=== PATIENT | female | born 1985 | race Caucasian/White ===

== ENCOUNTER 2022-01-24 21:00 | Inpatient (IN) | payer MEDICAID ==
[~2022-01-24] VITALS: Ht 160 cm; Wt 71.2 kg
[2022-01-24] MEDS ORDERED: RISP0.5T74 PO (22:17)
[2022-01-24] MEDS ORDERED: acetaminophen 325mg tablet PO PRN ×2 (22:20)
[2022-01-24] MEDS ORDERED: loperamide 2mg capsule PO PRN (22:20)
[2022-01-24] MEDS ORDERED: magnesium hydroxide 30ml (MOM) UD suspension PO PRN (22:20)
[2022-01-24] MEDS ORDERED: mag hydrox/Alum hydrox/simeth 30ml oral suspension PO PRN (22:20)
[2022-01-24 22:57] VITALS: BP 99/58
[2022-01-24] MEDS ORDERED: NICOTINE POLACRILEX 2 MG LOZENGE BC PRN (23:05)
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
[2022-01-25 07:00] VITALS: BP 119/70
[2022-01-25] MEDS ORDERED: nicotine 14mg patch - 24hr TD SCH (08:00)
[2022-01-25 08:07] LABS: HEMOGLOBIN A1C 5.7 % (4.5-6.2)
[2022-01-25 08:21] LABS: CHOL/HDL RATIO 2.1 (0.00-4.99); CHOLESTEROL 138 MG/DL (0-200); HDL CHOLESTEROL 65 MG/DL (35-60); LDL CHOLESTEROL 64 MG/DL (50-100); TRIGLYCERIDES 50 MG/DL (20-135)
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
[2022-01-25] MEDS: risperiDONE 0.5mg tablet PO SCH (20:32)
[2022-01-25] MEDS ORDERED: risperiDONE 0.5mg tablet PO SCH (21:00)
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
[2022-01-26 08:07] VITALS: BP 103/54
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
[2022-01-26 19:54] VITALS: BP 110/56
[2022-01-26] MEDS: risperiDONE 0.5mg tablet PO SCH (20:40)
[2022-01-26] MEDS ORDERED: hydrOXYzine 25 MG tablet PO ONE (21:10)
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
[2022-01-27 08:00] VITALS: BP 101/58
[2022-01-27] MEDS ORDERED: NICO-907 BC (14:37)
[2022-01-27] MEDS ORDERED: RISP1TAB98 PO (14:37)
== END 2022-01-27 15:44 | disposition home or self-care (01) | DRG 751 ==
LOC: ADULT MH 21:00
PROVIDERS: ADMIT Psychiatry & Neurology Psychiatry; ATTEND Psychiatry & Neurology Psychiatry
DX: F29 Unspecified psychosis not due to a substance or known physiological condition (principal); I62.00 Nontraumatic subdural hemorrhage, unspecified; F15.90 Other stimulant use, unspecified, uncomplicated; F17.210 Nicotine dependence, cigarettes, uncomplicated; F19.10 Other psychoactive substance abuse, uncomplicated; F20.9 Schizophrenia, unspecified; T40.411A Poisoning by fentanyl or fentanyl analogs, accidental (unintentional), initial encounter; F43.10 Post-traumatic stress disorder, unspecified; Z82.61 Family history of arthritis; Z59.00 Homelessness unspecified; Z88.6 Allergy status to analgesic agent; Z91.14 Patient's other noncompliance with medication regimen; Y92.89 Other specified places as the place of occurrence of the external cause; Z79.899 Other long term (current) drug therapy; Z71.6 Tobacco abuse counseling
CPT/HCPCS: 36415; 80061; 83036; 87081; Q0177